=== PATIENT | male | born 1975 | race African-American/Black ===

== ENCOUNTER 2017-11-13 15:29 | Emergency (ER) ==
[2017-11-13 15:43] VITALS: BP 128/81; TEMP 99.8; BMI 31.4
--- NOTE | 2017-11-13 16:08 | ED.PDOC ---
General ED Provider: Dr. AUBRIE MUELLER Chief Complaint: Back Pain Stated Complaint: BACK PAIN, HEADACHE, NECK PAIN Time Seen by Physician: 15:30 (FALL ON ICE ) Mode of Arrival: Walk-In Information Source: Patient Exam Limitations: No limitations Nursing and Triage Documentation Reviewed and Agree: Yes Reviewed sepsis parameters & appropriate labs ordered?: Yes System Inflammatory Response Syndrome: Not Applicable Sepsis Protocol: For patient's 13 years and over: Temp is 96.8 and below OR 101 and greater Pulse >90 BPM Resp >20/minute Acutely Altered Mental Status Are patient's symptoms suggestive of a new infection, such as: -Pneumonia -Skin, Soft Tissue -Endocarditis -UTI -Bone, Joint Infection -Implantable Device -Acute Abdominal Infection -Wound Infection -Meningitis -Blood Stream Catheter Infection -Unknown System Inflammatory Response Syndrome: Not Applicable Review of Systems - Review Of Systems Constitutional: Reports: No symptoms Eyes: Reports: No symptoms Ears, Nose, Mouth, Throat: Reports: No symptoms Respiratory: Reports: No symptoms Cardiac: Reports: No symptoms GI: Reports: No symptoms : Reports: No symptoms Musculoskeletal: Reports: Back pain, Neck pain Skin: Reports: No symptoms Neurological: Reports: Headache Endocrine: Reports: No symptoms Hematologic/Lymphatic: Reports: No symptoms All Other Systems: Reviewed and Negative Past Medical History - Past Medical History Previously Healthy: Yes Endocrine: Reports: None Cardiovascular: Reports: None Respiratory: Reports: None Hematological: Reports: None Gastrointestinal: Reports: None Genitourinary: Reports: None Neuro/Psych: Reports: None Musculoskeletal: Reports: None Cancer: Reports: None - Surgical History General Surgical History: Reports: None - Family History Family History: Reports: None - Social History Smoking Status: Current every day smoker, Light tobacco smoker Alcohol Screening: None Physical Exam - Physical Exam Appearance: Well-appearing, No pain distress, Well-nourished Eyes: LARISSA, EOMI, Conjunctiva clear ENT: Ears normal, Nose normal, Oropharynx normal Respiratory: Airway patent, Breath sounds clear, Breath sounds equal, Respirations nonlabored Cardiovascular: RRR, Pulses normal, No rub, No murmur GI/: Soft, Nontender, No masses, Bowel sounds normal, No Organomegaly Musculoskeletal: Normal strength, ROM intact, No edema, No calf tenderness Skin: Warm, Dry, Normal color Neurological: Sensation intact, Motor intact, Reflexes intact, Cranial nerves intact, Alert, Oriented Psychiatric: Affect appropriate, Mood appropriate Interpretation - Radiology Interpretation Radiology Interpretation By: Radiologist Critical Care Note - Critical Care Note Total Time (mins): 0 Course - Course Orders, Labs, Meds: Orders Category Date Time Status Hydrocodone Bit/Acetaminophen [[place] 10-325] MEDS 11/13/17 16:14 Discontinued 1 tab PO ONCE STA CT CERVICAL SPINE W/O CONTRAST Stat RADS 11/13/17 15:[address] HEAD W/O CONTRAST Stat RADS 11/13/17 15:[address] LUMBAR SPINE W/O CONTRAST Stat RADS 11/13/17 15:57 Completed Medications Discontinued Medications Generic Name Dose Route Start Last Admin Trade Name Freq PRN Reason Stop Dose Admin Acetaminophen/Hydrocodone Bitart 1 tab 11/13/17 16:14 11/13/17 16:32 [place] 10-325 PO 11/13/17 16:15 1 tab ONCE STA Administration Vital Signs: Temp Pulse Resp BP Pulse Ox 11/13/17 15:30 99.8 F H 87 20 128/81 97 Departure - Departure Time of Disposition: 17:15 Disposition: HOME SELF-CARE Discharge Problem: Neck pain, Headache Low back pain Qualifiers: Chronicity: acute Back pain laterality: midline Sciatica presence: without sciatica Qualified Code(s): M54.5 - Low back pain Instructions: Cervical Strain (ED), Head Injury (ED), Acute Low Back Pain (ED) , Neck Pain (ED) Condition: Good Pt referred to PMD for follow-up: Yes IPMP verified?: Yes Additional Instructions: Please call your Family Physician as soon as possible to schedule a follow-up appointment. Prescriptions: Hydrocodone/Acetaminophen [[place] 10-325 Tablet] 1 each PO Q8HR #12 tablet Allergies/Adverse Reactions: Allergies acetaminophen [From Ultracet] Adverse Reaction (Verified 11/13/17 15:37) gabapentin [From Neurontin] Adverse Reaction (Verified 11/13/17 15:37) promethazine [From Phenergan] Adverse Reaction (Verified 11/13/17 15:37) tramadol Adverse Reaction (Verified 11/13/17 15:37) Home Medications: Ambulatory Orders Amlodipine Besylate 2.5 mg PO DAILY 11/13/17 Atorvastatin Calcium 10 mg PO DAILY 11/13/17 Hydrocodone/Acetaminophen [[place] 10-325 Tablet] 1 each PO Q8HR #12 tablet Disposition Discussed With: Patient
[2017-11-13] MEDS ORDERED: NORCO 10-325 PO STA (16:14)
--- NOTE | 2017-11-13 16:39 | CT ---
EXAM: CT lumbar spine without contrast HISTORY: Fall COMPARISON: None TECHNIQUE: CT lumbar spine performed without intravenous contrast. Coronal and sagittal reformatted images obtained. FINDINGS: Vertebral bodies normal height. No fracture. Multilevel mild and moderate intervertebral space narrowing. Multilevel marginal osteophyte formation. Multilevel facet arthrosis. Trace retr olisthesis of L1 on L2, L2 on L3, L3 on L4, and L4 on L5. Small Schmorl's node formation superior en dplate L2. Sacroiliac joints intact with mild degenerative change. Mild leftward curvature upper lum bar spine. Aorta normal in caliber. Minimal atherosclerosis. T12-L1: No central canal or neural foraminal narrowing. L1-L2: Posterior disc osteophyte complex and facet arthrosis causing mild central canal and moderate right neural foraminal narrowing. L2-L3: Posterior disc osteophyte complex and facet arthrosis causing mild central canal, moderate ri ght and mild left neural foraminal narrowing. L3-L4: Posterior disc osteophyte complex and facet arthrosis causing mild to moderate central canal and moderate to severe bilateral neural foraminal narrowing. L4-L5: Posterior disc osteophyte complex and facet arthrosis causing mild to moderate central canal and moderate right and moderate to severe left neural foraminal narrowing. L5-S1: Posterior disc osteophyte complex and facet arthrosis causing mild to moderate right and moder ate to severe left neural foraminal narrowing IMPRESSION: 1. No fracture. 2. Chronic discogenic degenerative disease and facet arthrosis. Please see segmental analysis, noti ng multilevel central canal and neural foraminal narrowing.
--- NOTE | 2017-11-13 16:56 | CT ---
EXAM: CT cervical spine without contrast HISTORY: Pain COMPARISON: None TECHNIQUE: CT cervical spine performed without intravenous contrast. Coronal and sagittal reformatt ed images obtained. FINDINGS: The vertebral bodies normal in height. No fracture. Straightening of the normal cervical lordosis. 2 mm retrolisthesis C4 on C5. Multilevel intervertebral space narrowing with moderate in tervertebral space narrowing C4-C5 through C6-C7. Multilevel facet and uncovertebral hypertrophy. Pr evertebral soft tissues appear normal. C2-C3: Posterior disc osteophyte complex and facet arthrosis causing mild left neural foraminal narr owing. C3-C4: Posterior disc osteophyte complex and facet arthrosis causing mild central canal and mild lef t neural foraminal narrowing. C4-C5: Posterior disc osteophyte complex and facet arthrosis causing moderate central canal and mark re bilateral neural foraminal narrowing. C5-C6: Posterior disc osteophyte complex and facet arthrosis causing moderate central canal and mark re bilateral neural foraminal narrowing. C6-C7: Posterior disc osteophyte complex and facet arthrosis causing mild to moderate central canal and severe bilateral neural foraminal narrowing. C7-T1: No central canal or neural foraminal narrowing. IMPRESSION: 1. No fracture. 2. Advanced chronic discogenic degenerative disease and facet arthrosis. Please see segmental stef sis, noting multilevel moderate central canal and severe bilateral neural foraminal narrowing. 2 mm r etrolisthesis C4 on C5.. 3. Straightening of the normal cervical lordosis.
--- NOTE | 2017-11-13 16:57 | CT ---
EXAM: CT Head HISTORY: Fall COMPARISON: 11/10/2013 TECHNIQUE: CT head performed without contrast FINDINGS: There is no mass effect, midline shift, or intracranial hemmorhage. Sheehan white differenti ation is preserved. There is no extra-axial collection. The ventricles, sulci, and basal cisterns a re patent and symmetric. There is no depressed calvarial fracture. Streak artifact noted in the low er brain. The mastoid air cells are clear. The visualized paranasal sinuses are clear. Small right f rontal scalp hematoma. IMPRESSION: 1. No acute intracranial abnormality. 2. Small right frontal scalp hematoma. No depressed calvarial fracture.
== END 2017-11-13 17:15 | disposition home or self-care (01) ==
LOC: ED 15:29
DX: M54.5 Low back pain (principal); M54.2 Cervicalgia; R51 Headache; W00.0XXA Fall on same level due to ice and snow, initial encounter; F17.210 Nicotine dependence, cigarettes, uncomplicated
CPT/HCPCS: 99283